=== PATIENT | female | born 1955 | race Caucasian/White ===

== ENCOUNTER 2022-03-29 20:00 | Emergency (ER) | payer OTHER ==
[~2022-03-29] VITALS: Ht 165.1 cm; Wt 79.4 kg
[2022-03-29 20:00] VITALS: BP 136/61
--- NOTE | 2022-03-29 20:03 | NUR ---
PT SERGIO ALS. TAKEN TO BED 9
--- NOTE | 2022-03-29 20:07 | NUR ---
Jennifer atkinson in [facility] - 03/29/22 at [address] Salmeron examining patient.
--- NOTE | 2022-03-29 20:19 | NUR ---
EKG IN PROGRESS
--- NOTE | 2022-03-29 20:34 | NUR ---
AMBULATED TO BR, UA OBTAINED
--- NOTE | 2022-03-29 20:55 | NUR ---
Dr. Salmeron examining patient.
[2022-03-29 20:57] LABS: APPEARANCE,URINE CLEAR (CLEAR); BILIRUBIN,URINE 1+ (NEGATIVE); BLOOD, URINE NEGATIVE (NEGATIVE); COLOR,URINE YELLOW (YELLOW); LEUKOCYTE ESTERASE ,URINE NEGATIVE (NEGATIVE); NITRITE, URINE NEGATIVE (NEGATIVE); PH,URINE 5.5 (5.0-9.0); UGLUCOSE NEGATIVE (NEGATIVE)
[2022-03-29 21:47] VITALS: BP 146/69
--- NOTE | 2022-03-29 21:47 | NUR ---
Patient discharged with v/s stable. Written and verbal after care instructions given and explained. Patient verbalized understanding. Ambulatory with steady gait. All questions addressed prior to discharge. Advised to follow up with PMD.
== END 2022-03-29 21:47 | disposition home or self-care (01) ==
LOC: MED 20:00
DX: R55 Syncope and collapse (principal); R19.7 Diarrhea, unspecified; I95.9 Hypotension, unspecified; Z90.49 Acquired absence of other specified parts of digestive tract; Z98.890 Other specified postprocedural states
CPT/HCPCS: 81003; 93005; 99284